=== PATIENT | female | born 1985 | race Hispanic/Latino ===

== ENCOUNTER 2019-11-11 16:54 | Emergency (ER) | payer OTHER ==
[2019-11-11] MEDS ORDERED: NA CHLORIDE 0.9% 1,000 ML ONE (17:29)
[2019-11-11] MEDS ORDERED: ONDANSETRON 4 MG/2 ML VIAL ONE (17:32)
[2019-11-11] MEDS ORDERED: MORPHINE 2 MG/ML SYR ONE (17:46)
[2019-11-11 17:49] LABS: Absolute Lymphocytes (CBC) 1.3 K/uL (0.7-4.9); Basophils % 0.3 % (0-1.3); Hematocrit 34.4 % (36.0-45.0); Lymphocytes % 10.3 % (15.3-44.8); MPV 7.5 fL (7.6-11.3); RBC Red Blood Cell Count 3.81 M/uL (3.86-4.86)
[2019-11-11 17:55] LABS: BUN Blood Urea Nitrogen 11 mg/dL (7-18); Bicarbonate 23 mmol/L (21-32); Glucose Level 118 mg/dL (74-106); Potassium 3.9 mmol/L (3.5-5.1); Sodium Level 141 mmol/L (136-145)
[2019-11-11] MEDS ORDERED: NA CHLORIDE 0.9% IV ONE ×2 (18:00)
[2019-11-11] MEDS ORDERED: OXYTOCIN IV ONE ×2 (18:00)
--- NOTE | 2019-11-11 20:18 | RAD REPORT ---
EXAM DESCRIPTION: US - Transvaginal OB - 11/11/2019 8:05 pm CLINICAL HISTORY: with vaginal bleeding COMPARISON: November 04, 2019 FINDINGS: The uterus measures 9 x 5 x 7 centimeters. The endometrial stripe is thickened containing increased vascularity. Fluid is present within the endometrium. A pole is not visualized. Thes e findings indicate an incomplete Right ovary is normal in size and echotexture. Left ovary was not seen. The right and left adnexal un remarkable. . No significant free fluid is seen. IMPRESSION: Incomplete
--- NOTE | 2019-11-11 20:49 | EDPHYS ---
Physician Documentation [facility] Name: Deandra Brown Age: 34 yrs Sex: Female : 1985 Arrival Date: 11/11/2019 Time: 16:55 Bed 5 Private MD: Margarito Sosa B ED Physician Damian Sandhu HPI: 11/10 17:11 This 34 yrs old Female presents to ER via Wheelchair with complaints of Passed rn Out Prior To Arrival, Vaginal Bleeding, + Preg <12wks. 17:11 The patient has experienced syncope. Onset: The symptoms/episode began/occurred just rn prior to arrival. Duration: This was a single episode. Associated injury: The patient did not suffer any apparent associated injury. Current symptoms: generalized weakness and fatigue. The patient has not experienced similar symptoms in the past. Seen today at Dr. Sosa's office, per report from Dr Sosa, patient with incomplete miscarriage, + bleeding, hemoglobin today 13, given prescription for Cytotec but not filled, decreasing HCG, OS closed, went home and passed out while passing blood and sitting on toilet. Feels generally weak. . 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 - Social history:: Smoking status: Patient denies any tobacco usage or history of. - Family history:: not pertinent. - Hospitalizations: : No recent hospitalization is reported. ROS: 17:11 Constitutional: Negative for fever, chills, and weight loss, Eyes: Negative for injury, rn pain, redness, and discharge, Neck: Negative for injury, pain, and swelling, Cardiovascular: Negative for chest pain, palpitations, and edema, Respiratory: Negative for shortness of breath, cough, wheezing, and pleuritic chest pain, Abdomen/GI: + abd cramping : + vaginal bleeding MS/Extremity: Negative for injury and deformity, Skin: Negative for injury, rash, and discoloration, Neuro: Negative for headache, numbness, tingling, and seizure. Exam: 17:11 Constitutional: This is a well developed, well nourished patient who is awake, alert, rn and in no acute distress. Head/Face: Normocephalic, atraumatic. ENT: MMM Cardiovascular: Regular rate and rhythm. No pulse deficits. Respiratory: No increased work of breathing, no retractions or nasal flaring. Abdomen/GI: soft, non-tender MS/ Extremity: Pulses equal, no cyanosis. Neurovascular intact. Full, normal range of motion. Equal circumference. Neuro: Awake and alert, GCS 15, oriented to person, place, time, and situation. Cranial nerves II-XII grossly intact. Motor strength 5/5 in all extremities. Sensory grossly intact. Cerebellar exam normal. 20:51 ECG was reviewed by the Attending Physician. ricardo Vital Signs: 17:03 BP 121 / 88; Pulse 100; Resp 16 S; Temp 99.2; Pulse Ox 100% on R/A; Weight 50.8 kg; iw Height 5 ft. 1 in. (154.94 cm); 17:10 BP 105 / 58; iw 18:00 BP 101 / 58; Pulse 80; Resp 16; Pulse Ox 100% ; rb1 18:30 BP 110 / 74; Pulse 77; Resp 16; Pulse Ox 100% ; rb1 19:15 BP 115 / 72; Pulse 75; Resp 17; Pulse Ox 99% on R/A; rr5 20:00 BP 91 / 62; Pulse 79; Resp 19; Pulse Ox 99% ; rr5 21:05 BP 93 / 54 Supine; Pulse 69; Resp 17; Temp 98.5; Pulse Ox 100% ; rr5 21:07 BP 96 / 61 Sitting; Pulse 71; Resp 17; Pulse Ox 100% on R/A; rr5 21:09 BP 95 / 63 Standing; Pulse 78; Resp 14; Pulse Ox 100% on R/A; rr5 17:03 Body Mass Index 21.16 (50.80 kg, 154.94 cm) iw MDM: 16:58 Patient medically screened. rn 17:22 Differential Diagnosis: vasovagal episode, vaginal bleeding, anemia, miscarriage. Data rn reviewed: vital signs, nurses notes. 18:35 ED course: Pt feels better, reports minimal vaginal bleeding. . rn 18:56 ED course: Pt feels better, pending u/s given last U/S last week, to eval for retained rn products since Dr. Sosa reported closed OS today. Signed out to Dr. Sandhu pending u/s result and reeval.. 20:45 Data interpreted: mend worker: rate is 75 beats/min, rhythm is regular, Pulse ricardo oximetry: on room air is 99 %. Test interpretation: by ED physician or midlevel provider: ECG. Counseling: I had a detailed discussion with the patient and/or guardian regarding: the historical points, exam findings, and any diagnostic results supporting the discharge/admit diagnosis, lab results, radiology results, the need for outpatient follow up, for definitive care, an OB/Gyne specialist. ED course: blleding has decreased , pain minimal, pt explained what was going on and what to expect. 11/10 17:08 Order name: CBC with Diff rn 11/10 17:08 Order name: Basic Metabolic Panel; Complete Time: 17:59 11/10 17:27 Order name: Type And Screen; Complete Time: 18:35 bp 11/10 20:41 Order name: Quantitative Hcg [facility] 11/10 21:26 Order name: CBC Smear Scan EDVA 11/10 21:32 Order name: Urine --Ancillary (enter results) tt3 11/10 17:08 Order name: EKG; Complete Time: 17:10 rn 11/10 17:25 Order name: US Transvaginal Ob; Complete Time: 20:40 11/10 21:32 Order name: Urine Dipstick--Ancillary (enter results) tt 11/10 17:08 Order name: IV Start; Complete Time: 17:28 rn 11/10 17:08 Order name: EKG - Nurse/Tech; Complete Time: 18:48 rn 11/10 20:45 Order name: Orthostatics; Complete Time: 21:32 ricardo EC:51 Rate is 71 beats/min. Rhythm is regular. QRS [place] is Normal. [place] interval is normal. QRS ricardo interval is normal. QT interval is normal. No Q waves. T waves are Normal. No ST changes noted. Clinical impression: Normal ECG and No evidence of ischemia. Interpreted by me. Reviewed by me. Administered Medications: 17:20 Drug: NS 0.9% 1000 ml Route: IV; Rate: 1000 ml; Site: right forearm; bp 18:13 Follow up: IV Status: Completed infusion rb1 17:20 Drug: Zofran (Ondansetron) 4 mg Route: IVP; Site: right forearm; bp 17:35 Follow up: Response: No adverse reaction; Nausea is decreased rb1 17:40 Drug: morphine 2 mg Route: IVP; Site: right forearm; rb1 17:50 Drug: Pitocin 30 units Route: IV; Rate: calculated rate; Site: right forearm; rb1 21:30 Follow up: Response: No adverse reaction; IV Status: Order to discontinue infusion; IV rr5 Intake: 120ml 18:00 Drug: morphine 2 mg Route: IVP; Site: right forearm; rb1 19:05 Follow up: Response: No adverse reaction; RASS: Alert and Calm (0) rr5 21:10 Drug: METHERgine 0.2 mg Route: IM; Site: left deltoid; rr5 21:35 Follow up: Response: No adverse reaction rr5 Point of Care Testing: Urine : 21:15 hCG Reading: Positive; Control Reading: Positive; rr5 Disposition: 11/11/19 20:48 Discharged to Home. Impression: Syncope and collapse - near, Incomplete spontaneous with other complications - pain and near syncope. - Condition is Stable. - Discharge Instructions: Incomplete Miscarriage, Near-Syncope, Miscarriage, Weakness, Weakness, Sjbi-td-Coet, Miscarriage, [place]-fw-Acgv, Vasovagal Syncope, Adult. - Prescriptions for Methergine 0.2 mg Oral tablet - take 1 tablet by ORAL route every 6 hours; 5 tablet. Keflex 500 mg Oral Capsule - take 1 capsule by ORAL route every 6 hours for 7 days; 28 capsule. Vitamin 27- 0.8 mg Oral Tablet - take 1 tablet by ORAL route once daily; 30 tablet. - Medication Reconciliation Form, Thank You Letter, Antibiotic Education, Prescription Opioid Use, SBAR form form. - Follow up: Margarito Sosa MD; When: 1 - 2 days; Reason: Recheck today's complaints, Continuance of care, Re-evaluation by your physician. - Problem is new. - Symptoms have improved. Signatures: Dispatcher [employer] Damian Ellis MD MD cha Williams, Irene, RN RN iw Nieto, Roman, MD MD rn Barber, Rebecca, RN RN rb1 Moy Wakefield RN RN bp Ruben Hummel, RN RN rr5 Corrections: (The following items were deleted from the chart) 21:36 20:48 11/11/2019 20:48 Discharged to Home. Impression: Syncope and collapse - near; rr5 Incomplete spontaneous with other complications - pain and near syncope. Condition is Stable. Forms are SBAR form, Medication Reconciliation Form, Thank You Letter, Antibiotic Education, Prescription Opioid Use. Follow up: Margarito Sosa; When: 1 - 2 days; Reason: Recheck today's complaints, Continuance of care, Re-evaluation by your physician. Problem is new. Symptoms have improved. ricardo
--- NOTE | 2019-11-11 20:49 | ER ---
Nurse's Notes [facility] Name: Deandra Brown Age: 34 yrs Sex: Female : 1985 Arrival Date: 11/11/2019 Time: 16:55 Bed 5 Private MD: Margarito Sosa B Diagnosis: Syncope and collapse-near;Incomplete spontaneous with other complications-pain and near syncope Presentation: 11/10 17:03 Chief complaint: Patient states: is approx 10 weeks , LMP 20, first iw , has been having bleeding for past 10 days, heavy bleeding today. was told she was having a miscarriage by Dr. Sosa, was seen in office today and Hgb was 13.0, at home pt was on toilet, passing clots, got dizzy and states she passed out, was told to be evaluated in ER. Coronavirus screen: Proceed with normal triage. Patient denies a cough. Patient denies shortness of breath or difficulty breathing. Patient denies measured and/or subjective temperature greater than 100.4F prior to today's visit. Patient denies travel on a cruise ship or to a country the [facility] currently lists as an affected area. Patient denies contact with known and/or suspected case of COVID-19. Ebola Screen: Patient negative for fever greater than or equal to 101.5 degrees Fahrenheit, and additional compatible Ebola Virus Disease symptoms Patient denies exposure to infectious person. Patient denies travel to an Ebola-affected area in the 21 days before illness onset. No symptoms or risks identified at this time. Initial Sepsis Screen: Does the patient meet any 2 criteria? No. Patient's initial sepsis screen is negative. Does the patient have a suspected source of infection? No. Patient's initial sepsis screen is negative. Risk Assessment: Do you want to hurt yourself or someone else? Patient reports no desire to harm self or others. Onset of symptoms was November 01, 2019. 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 - Social history:: Smoking status: Patient denies any tobacco usage or history of. - Family history:: not pertinent. - Hospitalizations: : No recent hospitalization is reported. Screenin:00 Abuse screen: Denies threats or abuse. Nutritional screening: No deficits noted. rb1 Tuberculosis screening: No symptoms or risk factors identified. Fall Risk None identified. Assessment: 17:00 General: Appears distressed, Behavior is cooperative, anxious. Pain: Complains of pain rb1 in suprapubic area Quality of pain is described as crampy. Neuro: Level of Consciousness is awake, alert, obeys commands, Oriented to person, place, time, situation. Cardiovascular: Capillary refill < 3 seconds. Respiratory: Airway is patent Respiratory effort is even, unlabored, Respiratory pattern is regular, symmetrical. GI: Reports nausea. : Reports vaginal bleeding that is bright red, with clots, heavy flow. Derm: Skin is diaphoretic, Skin is normal, Skin temperature is cool. 18:00 Reassessment: Patient appears in no apparent distress at this time. Pt. is no longer rb1 diaphoretic. 18:15 Reassessment: Patient appears in no apparent distress at this time. Pt. reports that rb1 she is feeling better now. 19:15 General: Appears in no apparent distress. comfortable, Behavior is calm, cooperative, rr5 appropriate for age. 19:15 Pain: Complains of pain in suprapubic area. Neuro: Level of Consciousness is awake, rr5 alert, obeys commands, Oriented to person, place, time, situation. Cardiovascular: Capillary refill < 3 seconds Patient's skin is warm and dry. Respiratory: Airway is patent Respiratory effort is even, unlabored, Respiratory pattern is regular, symmetrical. GI: No signs and/or symptoms were reported involving the gastrointestinal system. : Reports I fell much better now Denies vaginal bleeding. EENT: No signs and/or symptoms were reported regarding the EENT system. Musculoskeletal: Circulation, motion, and sensation intact. Capillary refill < 3 seconds. 20:10 Reassessment: Patient appears in no apparent distress at this time. No changes from rr5 previously documented assessment. Patient is alert, oriented x 3, equal unlabored respirations, skin warm/dry/pink. 21:34 Reassessment: Patient appears in no apparent distress at this time. Patient is alert, rr5 oriented x 3, equal unlabored respirations, skin warm/dry/pink. discharge instruction given and explained without complaints made. Vital Signs: 17:03 BP 121 / 88; Pulse 100; Resp 16 S; Temp 99.2; Pulse Ox 100% on R/A; Weight 50.8 kg; iw Height 5 ft. 1 in. (154.94 cm); 17:10 BP 105 / 58; iw 18:00 BP 101 / 58; Pulse 80; Resp 16; Pulse Ox 100% ; rb1 18:30 BP 110 / 74; Pulse 77; Resp 16; Pulse Ox 100% ; rb1 19:15 BP 115 / 72; Pulse 75; Resp 17; Pulse Ox 99% on R/A; rr5 20:00 BP 91 / 62; Pulse 79; Resp 19; Pulse Ox 99% ; rr5 21:05 BP 93 / 54 Supine; Pulse 69; Resp 17; Temp 98.5; Pulse Ox 100% ; rr5 21:07 BP 96 / 61 Sitting; Pulse 71; Resp 17; Pulse Ox 100% on R/A; rr5 21:09 BP 95 / 63 Standing; Pulse 78; Resp 14; Pulse Ox 100% on R/A; rr5 17:03 Body Mass Index 21.16 (50.80 kg, 154.94 cm) iw ED Course: 16:55 Patient arrived in ED. ag5 16:55 Margarito oSsa MD is Private Physician. ag5 16:58 John Garcia MD is Attending Physician. rn 17:06 Triage completed. iw 17:07 Arm band placed on. iw 17:07 Patient has correct armband on for positive identification. Placed in gown. Bed in low iw position. Call light in reach. Side rails up X2. Pulse ox on. NIBP on. 17:12 Nedra Kern, YEN is Primary Nurse. rb1 18:14 EKG done, by ED staff, reviewed by John Garcia MD. dh3 20:05 Transvaginal Ob In Process Unspecified. EDMS 20:19 Attending Physician role handed off by John Garcia MD ricardo 20:19 Damian Sandhu MD is Attending Physician. ricardo 20:47 Margarito Sosa MD is Referral Physician. ricardo 21:34 No provider procedures requiring assistance completed. IV discontinued, intact, rr5 bleeding controlled, No redness/swelling at site. Pressure dressing applied. Administered Medications: 17:20 Drug: NS 0.9% 1000 ml Route: IV; Rate: 1000 ml; Site: right forearm; bp 18:13 Follow up: IV Status: Completed infusion rb1 17:20 Drug: Zofran (Ondansetron) 4 mg Route: IVP; Site: right forearm; bp 17:35 Follow up: Response: No adverse reaction; Nausea is decreased rb1 17:40 Drug: morphine 2 mg Route: IVP; Site: right forearm; rb1 17:50 Drug: Pitocin 30 units Route: IV; Rate: calculated rate; Site: right forearm; rb1 21:30 Follow up: Response: No adverse reaction; IV Status: Order to discontinue infusion; IV rr5 Intake: 120ml 18:00 Drug: morphine 2 mg Route: IVP; Site: right forearm; rb1 19:05 Follow up: Response: No adverse reaction; RASS: Alert and Calm (0) rr5 21:10 Drug: METHERgine 0.2 mg Route: IM; Site: left deltoid; rr5 21:35 Follow up: Response: No adverse reaction rr5 Point of Care Testing: Urine : 21:15 hCG Reading: Positive; Control Reading: Positive; rr5 Intake: 21:30 IV: 120ml; Total: 120ml. rr5 Outcome: 20:48 Discharge ordered by MD. ricardo 21:34 Discharged to home via wheelchair. rr5 21:34 Condition: stable 21:34 Discharge instructions given to patient, Instructed on discharge instructions, follow up and referral plans. medication usage, Demonstrated understanding of instructions, follow-up care, medications, Prescriptions given X 3. 21:36 Patient left the ED. rr5 Signatures: Dispatcher [employer] EDMS Damian Sandhu MD MD cha Williams, Irene, RN RN iw Nieto, Roman, MD MD rn Barber, Rebecca, RN RN rb1 Kirstie Bazzi 3 Moy Wakefield RN RN bp Roque, Raymond, RN RN rr5 Edmundo Villar ag5 Corrections: (The following items were deleted from the chart) 17:12 17:03 BP 121 / 88; Pulse 100bpm; Resp 16bpm; Spontaneous; Pulse Ox 100% RA; Temp 99.2F; iw iw 18:39 17:00 Derm: Skin is pink, warm \T\ dry. rb1 rb1
[2019-11-11] MEDS ORDERED: METHYLERGONOVINE 0.2MG/ML AMP IM ONE (21:10)
[2019-11-11 21:26] LABS: Blood Morphology Comment NOT SEEN (NOT SEEN); Platelet Estimate ADEQ; Urine White Blood Cell Casts OK
[2019-11-11 22:02] LABS: Urine Blood 2+ (NEG); Urine Glucose NEGATIVE (NEG); Urine Protein NEGATIVE (NEG); Urine Specific Gravity >1.030 (1.005-1.030)
[2019-11-11 22:15] VITALS: TEMP 98.5; O2SAT 100
[2019-11-11 22:18] VITALS: BP 95/63
--- NOTE | 2019-11-12 06:47 | EKG ---
Test Date: 2019-11-11 Test Time: 18:14:50 Manager Licensing: CECELIA MEASUREMENT RESULTS: Intervals: Rate: 71 DC: 116 QRSD: 70 QT: 394 QTc: 428 [place]: P: 52 DC: 116 QRS: 76 T: 58 INTERPRETIVE STATEMENTS: Normal sinus rhythm Normal ECG No previous ECG available for comparison Electronically Signed On 11-12-19 06:45:36 CDT by Christian Lopez
== END 2019-11-11 21:36 | disposition home or self-care (01) ==
LOC: ER 16:54
DX: O03.39 Incomplete spontaneous abortion with other complications (principal)
CPT/HCPCS: 96365; 93005; 85025; 80048; 36415; 86900; 86850; 81025; 86901; 84702; 81003; 76817; 96375; 96372; 99284; 96366; J2210; J2590; J2270; J7040; J7030; J2405

== ENCOUNTER 2019-11-12 11:49 | Observation (INO) | payer OTHER ==
[2019-11-12] MEDS ORDERED: NA CHLORIDE 0.9% 2,000 ML ONE (12:16)
[2019-11-12] MEDS ORDERED: ONDANSETRON 4 MG/2 ML VIAL ONE ×2 (12:17→13:19)
[2019-11-12] MEDS ORDERED: FENTANYL CITR 100 MCG/2 ML ONE ×2 (12:19→12:37)
--- NOTE | 2019-11-12 12:19 | EDPHYS ---
Physician Documentation [facility] Name: Deandra Brown Age: 34 yrs Sex: Female : 1985 Arrival Date: 11/12/2019 Time: 11:51 Bed 4 Private MD: ED Physician Ventura Loving HPI: 11/11 12:18 This 34 yrs old Female presents to ER via Unassigned with complaints of kdr Vaginal Bleeding, + Preg <12wks, Fainting. 12:18 The patient presents to the emergency department with vaginal bleeding, that is heavy, kdr with clots, Unknown. 12:24 The estimated gestational age is 10 weeks. kdr 12:27 course: care: at a clinic, private OB physician, Dr. Sosa, [facility] Ultrasound: the patient had an ultrasound, on November 10, 2019. Previous pregnancies: the patient has never been . Associated signs and symptoms: Pertinent positives: abdominal pain, nausea, vaginal bleeding, vomiting, Syncope. The patient has not experienced similar symptoms in the past. The patient has been recently seen at the [facility] Emergency Department, yesterday. The patient has continued to have intermittent vaginal bleeding and syncope this morning and abdominal pain . 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 - Social history:: Smoking status: Patient denies any tobacco usage or history of. ROS: 12:27 Constitutional: Negative for fever, chills, and weight loss, Eyes: Negative for injury, kdr pain, redness, and discharge, ENT: Negative for injury, pain, and discharge, Neck: Negative for injury, pain, and swelling, Cardiovascular: Negative for chest pain, palpitations, and edema, Respiratory: Negative for shortness of breath, cough, wheezing, and pleuritic chest pain, Abdomen/GI: Negative for abdominal pain, nausea, vomiting, diarrhea, and constipation, Back: Negative for injury and pain, MS/Extremity: Negative for injury and deformity, Skin: Negative for injury, rash, and discoloration, Neuro: Negative for headache, weakness, numbness, tingling, and seizure activity. Psych: Negative for depression, anxiety, suicide ideation, homicidal ideation, and hallucinations, Allergy/Immunology: Negative for hives, rash, and allergies, Endocrine: Negative for neck swelling, polydipsia, polyuria, polyphagia, and marked weight changes, Hematologic/Lymphatic: Negative for swollen nodes, abnormal bleeding, and unusual bruising. 12:27 : Positive for vaginal bleeding, Negative for Exam: 12:27 Constitutional: This is a well developed, well nourished patient who is awake, alert, kdr and in no acute distress. Head/Face: Normocephalic, atraumatic. Eyes: Pupils equal round and reactive to light, extra-ocular motions intact. Lids and lashes normal. Conjunctiva and sclera are non-icteric and not injected. Cornea within normal limits. Periorbital areas with no swelling, redness, or edema. Chest/axilla: Normal chest wall appearance and motion. Nontender with no deformity. No lesions are appreciated. Cardiovascular: Regular rate and rhythm with a normal S1 and S2. No gallops, murmurs, or rubs. Normal PMI, no JVD. No pulse deficits. Respiratory: Lungs have equal breath sounds bilaterally, clear to auscultation and percussion. No rales, rhonchi or wheezes noted. No increased work of breathing, no retractions or nasal flaring. Abdomen/GI: Soft, non-tender, with normal bowel sounds. No distension or tympany. No guarding or rebound. No evidence of tenderness throughout. Back: No spinal tenderness. No costovertebral tenderness. Full range of motion. Skin: Warm, dry with normal turgor. Normal color with no rashes, no lesions, and no evidence of cellulitis. MS/ Extremity: Pulses equal, no cyanosis. Neurovascular intact. Full, normal range of motion. 12:27 Neuro: The patient had intermittent syncopal episodes and may have had a seizure in the lobby prior to being put in a room. 13:00 ECG was reviewed by the Attending Physician. kdr Vital Signs: 12:05 BP 96 / 60; Pulse 87; Resp 16; Pulse Ox 99% on R/A; ss 12:27 BP 105 / 56; Pulse 87; Resp 12; Temp 98.2(TE); Pulse Ox 100% on R/A; ss 12:28 Weight 50.8 kg (M); ss MDM: 12:18 Patient medically screened. kdr 12:27 Data reviewed: vital signs, nurses notes, lab test result(s). Counseling: I had a kdr detailed discussion with the patient and/or guardian regarding: the historical points, exam findings, and any diagnostic results supporting the discharge/admit diagnosis, the need for further work-up and treatment in the hospital. 11/11 12:12 Order name: Abo/rh Typing em 11/11 12:12 Order name: Basic Metabolic Panel; Complete Time: 12:48 em 11/11 12:12 Order name: CBC with Diff; Complete Time: 12:48 em 11/11 12:27 Order name: Antibody Screen [facility] 11/11 12:27 Order name: Packed RBC Leukored [facility] 11/11 12:27 Order name: RBC Leukored Pheresis [facility] 11/11 12:12 Order name: IV Saline Lock; Complete Time: 12:20 em 11/11 12:12 Order name: Labs collected and sent; Complete Time: 12:20 em 11/11 12:12 Order name: NPO; Complete Time: 12:20 em EC:00 Rate is 69 beats/min. Rhythm is regular, Normal Sinus Rhythm with No ectopy. QRS [place] kdr is Normal. LA interval is normal. QRS interval is normal. QT interval is normal. No Q waves. Clinical impression: Normal ECG and No evidence of ischemia. Administered Medications: 12:08 Drug: NS 0.9% 1000 ml Route: IV; Rate: 1 bolus; Site: right antecubital; ss 12:33 Follow up: IV Status: Completed infusion; IV Intake: 1000ml em 12:10 Drug: fentaNYL (PF) 25 mcg Route: IVP; Site: right antecubital; ss 12:25 Follow up: Response: No adverse reaction; Pain is unchanged, physician notified em 12:11 Drug: Zofran (Ondansetron) 4 mg Route: IVP; Site: right antecubital; ss 12:33 Follow up: Response: No adverse reaction; Marked relief of symptoms; Nausea is decreasedem 12:12 Drug: Pitocin 20 units Route: IV; Rate: calculated rate; Site: right antecubital; ss 12:30 Follow up: Response: No adverse reaction; IV Status: Completed infusion em 12:28 Drug: fentaNYL (PF) 25 mcg Route: IVP; Site: right antecubital; ss 12:32 Follow up: Response: No adverse reaction em Disposition: 11/12/19 12:18 Hospitalization ordered by Margarito Sosa for Inpatient Admission. Preliminary diagnosis are Abnormal uterine and vaginal bleeding, unspecified, Syncope and collapse. - [facility]. - Status is Inpatient Admission. em - Condition is Serious. - Problem is an ongoing problem. - Symptoms have worsened. Signatures: Dispatcher [employer] EDVentura Perez MD MD kdr Rico Bernal RN RN em Kirsten De La Garza RN RN ss Corrections: (The following items were deleted from the chart) 12:38 12:18 Hospitalization Ordered by Margarito Sosa MD for Inpatient Admission. Preliminary em diagnosis is Abnormal uterine and vaginal bleeding, unspecified; Syncope and collapse. Bed requested for [facility]. Status is Inpatient Admission. Condition is Serious. Problem is an ongoing problem. Symptoms have worsened. kdr
--- NOTE | 2019-11-12 12:19 | ER ---
Nurse's Notes [facility] Name: Deandra Brown Age: 34 yrs Sex: Female : 1985 Arrival Date: 11/12/2019 Time: 11:51 Bed 4 Private MD: Diagnosis: Abnormal uterine and vaginal bleeding, unspecified;Syncope and collapse Presentation: 11/11 12:01 Chief complaint: Spouse and/or significant other states: vaginal bleeding x 10 days. ss Seen in ER yesterday and told she was having a miscarriage, was passing heavy clots yesterday and all day today. Syncope x 2 today. Pt is diaphoretic, lethargic upon arrival to ED. Coronavirus screen: Patient denies a cough. Patient denies shortness of breath or difficulty breathing. Patient denies measured and/or subjective temperature greater than 100.4F prior to today's visit. Patient denies travel on a cruise ship or to a country the [facility] currently lists as an affected area. Patient denies contact with known and/or suspected case of COVID-19. Patient instructed to continue to wear a mask when interacting with others. Patient moved to private room, placed in contact and droplet isolation with eye protection until further assessment. Ebola Screen: Patient denies exposure to infectious person. Patient denies travel to an Ebola-affected area in the 21 days before illness onset. Initial Sepsis Screen: Does the patient meet any 2 criteria? No. Patient's initial sepsis screen is negative. Does the patient have a suspected source of infection? No. Patient's initial sepsis screen is negative. Risk Assessment: Do you want to hurt yourself or someone else? Patient reports no desire to harm self or others. Onset of symptoms was November 02, 2019. 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 - Social history:: Smoking status: Patient denies any tobacco usage or history of. Screenin:26 Abuse screen: Denies threats or abuse. Denies injuries from another. Nutritional ss screening: No deficits noted. Tuberculosis screening: Never had TB. Fall Risk None identified. Assessment: 12:05 General: Appears uncomfortable, ill, Behavior is listless. Pain: Complains of pain in em abdomen. Neuro: Level of Consciousness is awake, lethargic, listless, Reports a syncopal episode. Cardiovascular: Capillary refill is > 3 seconds is sluggish in bilateral fingers. Respiratory: Airway is patent Respiratory effort is even, Respiratory pattern is regular. GI: Abdomen is flat, Reports nausea, vomiting. : Reports vaginal bleeding that is heavy flow. Derm: Skin is intact, Skin is diaphoretic, Skin is pale, Skin temperature is cool. 12:20 Reassessment: Reassessment: Dr. Sosa at bedside. em 12:32 Reassessment: report given to YEN Fowler, pt wheeled to OR. em Vital Signs: 12:05 BP 96 / 60; Pulse 87; Resp 16; Pulse Ox 99% on R/A; ss 12:27 BP 105 / 56; Pulse 87; Resp 12; Temp 98.2(TE); Pulse Ox 100% on R/A; ss 12:28 Weight 50.8 kg (M); ss ED Course: 11:51 Patient arrived in ED. mr 11:55 Ventura Loving MD is Attending Physician. kdr 12:05 Inserted saline lock: 18 gauge in right antecubital area, using aseptic technique. sv Blood collected. 12:05 T\T\S collected, blood band applied to patient. sv 12:05 Arm band placed on left wrist. ss 12:05 Patient has correct armband on for positive identification. Placed in gown. Bed in low em position. Pulse ox on. NIBP on. 12:10 EKG done, by ED staff, reviewed by Ventura Loving MD. dh3 12:11 Inserted saline lock: 20 gauge in right wrist, using aseptic technique. ss 12:12 Rico Bernal, YEN is Primary Nurse. em 12:16 Margarito Sosa MD is Hospitalizing Provider. kdr 12:18 Assist provider with pelvic exam: Set up pelvic tray. Performed by Margarito Sosa MD em Patient tolerated well. 12:24 Triage completed. ss 12:35 Patient admitted, IV remains in place. em Administered Medications: 12:08 Drug: NS 0.9% 1000 ml Route: IV; Rate: 1 bolus; Site: right antecubital; ss 12:33 Follow up: IV Status: Completed infusion; IV Intake: 1000ml em 12:10 Drug: fentaNYL (PF) 25 mcg Route: IVP; Site: right antecubital; ss 12:25 Follow up: Response: No adverse reaction; Pain is unchanged, physician notified em 12:11 Drug: Zofran (Ondansetron) 4 mg Route: IVP; Site: right antecubital; ss 12:33 Follow up: Response: No adverse reaction; Marked relief of symptoms; Nausea is decreasedem 12:12 Drug: Pitocin 20 units Route: IV; Rate: calculated rate; Site: right antecubital; ss 12:30 Follow up: Response: No adverse reaction; IV Status: Completed infusion em 12:28 Drug: fentaNYL (PF) 25 mcg Route: IVP; Site: right antecubital; ss 12:32 Follow up: Response: No adverse reaction em Intake: 12:33 IV: 1000ml; Total: 1000ml. em Outcome: 12:18 Decision to Hospitalize by Provider. kdr 12:34 Admitted to OR accompanied by nurse, family with patient, via stretcher, with oxygen, em on monitor, Report called to YEN Fowler 12:34 Condition: good 12:34 Instructed on the need for admit, Demonstrated understanding of instructions. 12:38 Patient left the ED. em Signatures: Felisa Rollins RN RN sv Rittger, Kevin, MD MD kdr Rivera, Mary mr Munoz, Edgar, RN RN em Smirch, Shelby, RN RN Kirstie Bazzi count includes the [facility] Corrections: (The following items were deleted from the chart) 12:19 12:08 Inserted saline lock: 20 gauge in right antecubital area, using aseptic sv technique. Blood collected. ss
[2019-11-12] MEDS ORDERED: OXYTOCIN 10 UNIT/ML ML IV ONE ×2 (12:20→12:47)
[2019-11-12 12:25] LABS: Absolute Lymphocytes (CBC) 2.5 K/uL (0.7-4.9); Basophils % 0.3 % (0-1.3); Hematocrit 26.6 % (36.0-45.0); Lymphocytes % 22.2 % (15.3-44.8); MPV 7.6 fL (7.6-11.3); RBC Red Blood Cell Count 2.96 M/uL (3.86-4.86)
[2019-11-12] MEDS ORDERED: SUCCINYLCHOLINE 20 MG/ML (10 ML) IV ONE (12:35)
[2019-11-12] MEDS ORDERED: LIDOCAINE 2% MPF 5 ML VIAL ONE (12:37)
[2019-11-12] MEDS ORDERED: propofoL 200 MG/20 ML VIAL IV ONE (12:37)
[2019-11-12] MEDS ORDERED: ROCURONIUM 50 MG/5 ML VIAL IV ONE (12:38)
[2019-11-12] MEDS ORDERED: Phenylephrine HCl 10 MG/ML 1 ML VIAL ONE (12:39)
[2019-11-12] MEDS ORDERED: NS 0.9% VIAL 10 ML ONE ×2 (12:39→12:40)
[2019-11-12 12:41] LABS: BUN Blood Urea Nitrogen 8 mg/dL (7-18); Bicarbonate 23 mmol/L (21-32); Glucose Level 126 mg/dL (74-106); Potassium 3.7 mmol/L (3.5-5.1); Sodium Level 141 mmol/L (136-145)
[2019-11-12] MEDS ORDERED: NA CHLORIDE 0.9% 500 ML ONE (12:45)
[2019-11-12 12:48] VITALS: O2SAT 100
[2019-11-12] MEDS ORDERED: METHYLERGONOVINE 0.2MG/ML AMP IM ONE (12:48)
[2019-11-12] MEDS ORDERED: CARBOPROST TROME 250 MCG/ML IM ONE (12:49)
[2019-11-12] MEDS ORDERED: CEFAZOLIN/SWI 1gm 1 GM/10 ML SYR ONE (12:51)
[2019-11-12] MEDS ORDERED: NA CHLORIDE 0.9% 1,000 ML ONE (13:12)
--- NOTE | 2019-11-12 13:19 | PREOPHP ---
Date of Admission: 11/12/2019 History: A 34-year-old, seen in my office approximately 2 days ago for what appears to be an early s pontaneous . Quantitative HCG levels have been declining. Patient was only spotting at that time. Offered options of expectant management versus D and C. chose expectant management. She sta rted bleeding more, went to the emergency room last night. Again was started on Pitocin and ultrasou nd demonstrated probably basically empty uterus but still some clots remaining. Patient was dismisse d, called me this morning at the office. We again told her she should be taking Cytotec which she alma delia morales not done, to try to clamp down the uterus and expel any products or remaining. She again was offer ed D and C, again and declined it. The patient is now appeared in emergency room diaphoretic and hyp otensive. She is alert. She has had nothing but jello this morning and her says she has spit most of that up. We will prepare for surgery at this point, which the patient and both agre ed they want. Infection, blood loss, anesthetic complications, injury to bladder, bowel, ureter, pos toperative complications, clots in legs, and pneumonia discussed. The patient knows fully well this not constitute all the possible problems that could occur during or following surgery. Family History: Really noncontributory. Medical History: She has been diagnosed with fibroids, has undergone in-vitro fertilization in [facility] which did not succeed. Apparently she has had a diagnostic laparoscopy for hemorrhagic cyst but no blood transfusion at that point. That was approximately 4 years ago. Physical Examination: General: The patient is pale, conjunctivae were pale but she is alert. Heart and Lungs: Clear. Breasts: Not examined. Abdomen: Soft. Extremities: Clear. Uterus: Up normal for somebody who never had a term , probably fibroids. Cervical os is mor e open than it was yesterday in the office but they are still no products of conception yet and she i s having significant bleeding at this point. We have typed and crossed her for 2 units and are awaiting the first unit. Surgery has been notified and we are preparing to take patient for uterine evacuation. FLOYD/BRITANY Voice ID: [id number]
[2019-11-12] MEDS ORDERED: dexAMETHasone 4 MG/ML VIAL ONE (13:28)
[2019-11-12] MEDS ORDERED: KETOROLAC 30 MG/ML INJ ONE (13:50)
[2019-11-12] MEDS ORDERED: ONDANSETRON 4 MG/2 ML VIAL IV PRN (13:56)
[2019-11-12] MEDS ORDERED: KETOROLAC 30 MG/ML INJ IV PRN (13:57)
[2019-11-12] MEDS ORDERED: ZOLPIDEM TARTRATE 5 MG TABLET PO PRN (13:57)
[2019-11-12] MEDS ORDERED: MEPERIDINE HCL 25 MG/ML SYR IV PRN (13:57)
[2019-11-12] MEDS ORDERED: NA CHLORIDE 0.9% 1,000 ML IV SCH (14:00)
[2019-11-12 15:11] VITALS: BMI 21.1
[2019-11-12 16:09] LABS: Hematocrit 29.7 % (36.0-45.0)
--- NOTE | 2019-11-12 22:40 | OP ---
Surgeon: Margarito Sosa MD Preoperative Diagnosis: Incomplete . Postoperative Diagnosis: Incomplete . Indications: The patient had been seen in my office and then in the emergency room, given choice of D and C, both times chose to not have the D and C, and try medical treatment. She came back to the e mergency room this morning, was seen by Dr. Heath, started on IVs, was hypotensive, diaphoretic, ve ry pale at that time. He ordered a unit of blood, which has been given. The patient was examined. The cervical os was open, but there was no products of conception and she was bleeding significantly. Decision was made to go the surgery. Infection, blood loss, anesthetic complications, injury to bl adder, bowel, ureter, postoperative complications, clots in legs, pneumonia discussed. The patient k nows fully well this does not constitute all the possible problems that could occur during or followi ng surgery. 1 g of Ancef ordered as well as IV drip Pitocin. Description Of Procedure: After general anesthetic, the patient was prepped and draped in usual norm al way and placed in the dorsal lithotomy position. Time-out was performed. Ring clamp was placed o n anterior cervical lip. The largest Ferguson dilator was admitted without any further dilation being n ecessary. A 10 mm curved suction curette was introduced and obviously necrotic intrauterine contents were evacuated. This was followed by sharp curettement, suction curettement, and a second light sha rp curettement. Uterus contracted down well. Blood loss during the procedure was 75 cc, but signifi cantly more than that prior to the procedure. The patient was given 0.2 mg of Methergine IM with rubia cuation of the uterus. Tolerated all procedures well. First unit of blood is just about complete. She will be transferred to the recovery room and we will probably watch her until late this evening o r possibly overnight. Blood type is Rh positive, therefore RhoGAM will not be necessary. Diagnoses: Incomplete , suction curettage for uterine evacuation, general anesthetic, blood transfusion. FLOYD/BRITANY Voice ID: [id number] Report ID: [id number]
[2019-11-13 07:18] VITALS: BP 100/43; TEMP 97.9
--- NOTE | 2019-11-13 08:18 | DS ---
Date of Discharge: 11/13/2019 Hospital Course: A 34-year-old female with preop diagnosis incomplete . The patient was adm itted through the emergency room, diaphoretic and hypotensive. Dr. Heath ordered 2 units of O-nega tive blood, which were eventually given. The patient was taken to surgery, suction curettage, D and C was performed for uterine evacuation with obviously necrotic intrauterine products of conception st ill remaining. IV drip Pitocin and Methergine were given at time of surgery. Postoperatively, the p atient has done quite well. She is ambulating. She is eating. She will be dismissed this morning t o return to my office next week for followup, to report any temperature elevation of [address], severe pain, heavy bleeding or any other type of abnormalities. She had 1 g of Ancef. Prior to the surgery, she got doxycycline at home and will take 100 mg twice a day for 2 days. She has Cytot ec at home, which if she has any clots whatsoever she will take Cytotec on every 4 hours basis. She also has tramadol at home, which she will take if she needs it, but she has had no analgesics since I V Toradol was given right after surgery. Final Diagnoses: First trimester incomplete . Suction and sharp curettage for uterine evacu ation. Blood transfusion. FLOYD/BRITANY Voice ID: [id number] Report ID: [id number]
== END 2019-11-13 07:30 | disposition home or self-care (01) ==
LOC: ER 11:49 → 2ND-WC 13:53
PROVIDERS: ADMIT Specialist; ATTEND Specialist
PROC: 30233N1 Transfusion of Nonautologous Red Blood Cells into Peripheral Vein, Percutaneous Approach (ICD-10-PCS; 2019-11-12)
PROC: 10D17ZZ Extraction of Products of Conception, Retained, Via Natural or Artificial Opening (ICD-10-PCS; principal; 2019-11-12 14:45)
DX: O03.4 Incomplete spontaneous abortion without complication (principal); I95.9 Hypotension, unspecified; R61 Generalized hyperhidrosis
CPT/HCPCS: 96365; 93005; 85025; 80048; 36415; 86900; 86850; 86901; 88305; 85018 ×2; 85014 ×2; 96375; 99285; 59812; 36430; J2704; J2210; J2590; J0330; J2370; J3010 ×2; J0690; P9016 ×2; J7040; J7030 ×3; J2405 ×2; G0378 ×3